=== PATIENT | female | born 1965 | race Caucasian/White ===

== ENCOUNTER → 2021-05-06 | Outpatient (CLI) | payer OTHER ==
[~2021-05-06] MED LIST: CALCIUM OYSTER; COUMADIN 5MG5 MG/TAB PO; NIZORAL SHAMPO120 M1 TP; VITAMIN D 1001000 IU PO; ZESTRIL 20MG TA20 MG; ZOCOR 40MG40 MG PO
== END ==
LOC: COL.PUL 12:57
DX: R06.02 Shortness of breath (principal); Z87.891 Personal history of nicotine dependence
CPT/HCPCS: J7674

== ENCOUNTER → 2021-12-31 | Outpatient (CLI) | payer OTHER | LOC: COL.VAS 12:59 | DX: I08.3 Combined rheumatic disorders of mitral, aortic and tricuspid valves (principal); I31.3 Pericardial effusion (noninflammatory) ==